=== PATIENT | female | born 1945 | race Caucasian/White ===

== ENCOUNTER 2016-06-29 09:15 | Outpatient (CLI) | payer MEDICARE, OTHER | END 2016-06-29 09:16 | disposition home or self-care (01) | DX: E88.81 Metabolic syndrome and other insulin resistance (principal) ==

== ENCOUNTER 2017-02-10 08:00 | Outpatient (CLI) | payer MEDICARE, OTHER ==
[2017-02-10 19:14] LABS: BASOPHILS # (AUTO) 0.1 10^3/uL (0.0-0.1); BASOPHILS % (AUTO) 0.6 %; EOSINOPHILS # (AUTO) 0.5 10^3/uL (0.0-0.7); EOSINOPHILS % (AUTO) 6.3 %; HGB - HEMOGLOBIN 13.4 g/dL (12.0-16.0); LYMPHOCYTES % (AUTO) 36.8 %; MEAN CORPUSCULAR HEMOGLOBIN 28.5 pg (27.0-31.0); MEAN CORPUSCULAR HGB CONC 31.9 g/dL (32.0-36.0); MEAN CORPUSCULAR VOLUME 89.2 fL (81.0-99.0); MEAN PLATELET VOLUME 8.1 fL (7.9-10.8); MONOCYTES # (AUTO) 0.6 10^3/uL (0.0-1.0); MONOCYTES % (AUTO) 7.7 %; NEUTROPHILS # (AUTO) 3.9 10^3/uL (1.5-6.6); NEUTROPHILS % (AUTO) 48.6 %; RED CELL DISTRIBUTION WIDTH 14.4 % (12.0-15.0); UNCORRECTED WHITE BLOOD COUNT 8.1 x10^3/uL; WHITE BLOOD COUNT 8.1 x10^3/uL (4.8-10.8)
[2017-02-10 19:19] LABS: HEMOGLOBIN A1C 0.64 g/dL
[2017-02-10 19:20] LABS: ALBUMIN/GLOBULIN RATIO 1.4 (1.0-2.2); BILIRUBIN,TOTAL 0.4 mg/dL (0.2-1.0); BUN - BLOOD UREA NITROGEN 18 mg/dL (6-20); CALCIUM 9.1 mg/dL (8.5-10.3); CARBON DIOXIDE - CO2 25 mmol/L (21-32); CHLORIDE 104 mmol/L (101-111); CHOL/HDL RATIO 2.8 (<4.4); CHOLESTEROL 224 mg/dL; CREATININE 0.7 mg/dL (0.4-1.0); GFR - MDRD 83 (>89); GLUCOSE 86 mg/dL (70-100); HDL CHOLESTEROL 81 mg/dL; LDL/HDL RATIO 1.5 (<4.4); POTASSIUM 3.9 mmol/L (3.5-5.0); SODIUM 138 mmol/L (135-145); TRIGLYCERIDES 119 mg/dL; VLDL CHOLESTEROL 24 mg/dL
[2017-02-10 19:49] LABS: THYROID STIMULATING HORMONE 0.73 uIU/mL (0.34-5.60)
== END 2017-02-10 08:01 ==
LOC: LAB.R 08:00
PROVIDERS: ATTEND Internal Medicine
DX: Z98.84 Bariatric surgery status (principal); R31.1 Benign essential microscopic hematuria; E03.9 Hypothyroidism, unspecified; E11.9 Type 2 diabetes mellitus without complications; I10 Essential (primary) hypertension; Z79.899 Other long term (current) drug therapy
CPT/HCPCS: 80053; 80061; 82306; 82607; 83036; 84443; 85025

== ENCOUNTER 2017-02-22 15:24 | Outpatient (CLI) | payer MEDICARE, OTHER ==
--- NOTE | 2017-02-23 14:11 | Mammography Report ---
DIGITAL BILATERAL SCREENING MAMMOGRAM: 02/22/2017 COMPARISON: 12/10/2015, 12/04/2014, 11/16/2014, 07/29/2011, 03/06/2010. TECHNIQUE: Bilateral digital CC and MLO projections with an additional exaggerated right CC projection. FINDINGS: There are scattered fibroglandular densities. There are no dominant masses, architectural distortion, skin thickening, or suspicious microcalcifications. Slight asymmetric increased density in the left subareolar region is stable. No significant new findings. IMPRESSION: NEGATIVE, BI-RADS 1. SUGGEST ROUTINE FOLLOWUP IN 12 MONTHS. STANDARD QUALIFYING STATEMENTS 1. This examination was reviewed with the aid of Computer-Aided Detection (CAD). 2. A negative or benign imaging report should not delay biopsy if clinically suspicious findings are present. Consider surgical consultation if warranted. More than 5% of cancers are not identified by imaging. 3. Dense breasts may obscure an underlying neoplasm. JOB #: [id number] EXT JOB #: [id number] [facility]ERS[facility]
== END 2017-02-22 15:25 | disposition home or self-care (01) ==
LOC: DI 15:24
PROVIDERS: ATTEND Internal Medicine
DX: Z12.31 Encounter for screening mammogram for malignant neoplasm of breast (principal)
CPT/HCPCS: 77067

== ENCOUNTER 2017-04-26 09:58 | Outpatient (CLI) | payer MEDICARE, OTHER | END 2017-04-26 09:59 | disposition home or self-care (01) | LOC: SC 09:58 | PROVIDERS: ATTEND Nurse Practitioner Family | DX: G47.33 Obstructive sleep apnea (adult) (pediatric) (principal) | CPT/HCPCS: 99214; G0463; 99212 ==

== ENCOUNTER 2017-05-25 12:04 | Outpatient (CLI) | payer MEDICARE, OTHER ==
--- NOTE | 2017-05-25 12:39 | XRAY Preliminary Report ---
Exam: XR CHEST 2 VIEW PA/LAT IMPRESSION: 1. Increased very mild left basilar atelectasis or infiltrate. No focal consolidation. 2. Probable ascending aortic ectasia, apparently increased compared with 2014. [facility] SITE ID: [id number]
--- NOTE | 2017-05-25 12:41 | XRAY Report ---
EXAM: CHEST RADIOGRAPHY EXAM DATE: 05/25/2017 12:28 PM. CLINICAL HISTORY: COUGH. COMPARISON: 02/20/2014. TECHNIQUE: 2 views. FINDINGS: Lungs/Pleura: Increased very mild left basilar opacity which could represent atelectasis or infiltrat e. No dense consolidation. No gross pleural effusion. No pneumothorax. Pattern suspicious for ascendi ng aortic ectasia, possibly increased. Mediastinum: Heart and mediastinal contours are unremarkable. Other: None. IMPRESSION: 1. Increased very mild left basilar atelectasis or infiltrate. No focal consolidation. 2. Probable ascending aortic ectasia, apparently increased compared with 2013. [facility] Referring Provider Line: [phone] SITE ID: [id number]
== END 2017-05-25 12:05 | disposition home or self-care (01) ==
LOC: DI 12:04
PROVIDERS: ATTEND Internal Medicine
DX: R05 Cough (principal)
CPT/HCPCS: 71020

== ENCOUNTER 2017-08-17 09:25 | Outpatient (CLI) | payer MEDICARE, OTHER ==
[2017-08-17 11:46] LABS: HB2 TOTAL 14.8 g/dL; HEMOGLOBIN A1C 0.73 g/dL; HEMOGLOBIN A1C % 6.7 % (4.6-6.2)
== END 2017-08-17 09:26 | disposition home or self-care (01) ==
LOC: LAB.R 09:25
PROVIDERS: ATTEND Internal Medicine
DX: E11.9 Type 2 diabetes mellitus without complications (principal)
CPT/HCPCS: 83036

== ENCOUNTER 2018-01-04 08:39 | Outpatient (CLI) | payer MEDICARE, OTHER ==
[2018-01-04 13:54] LABS: ALBUMIN 3.9 g/dL (3.2-5.5); ALBUMIN/GLOBULIN RATIO 1.2 (1.0-2.2); BILIRUBIN,TOTAL 0.9 mg/dL (0.2-1.0); CALCIUM 9.1 mg/dL (8.5-10.3); CREATININE 0.7 mg/dL (0.4-1.0); TOTAL PROTEIN 7.1 g/dL (6.7-8.2)
[2018-01-04 14:12] LABS: HB2 TOTAL 14.1 g/dL; HEMOGLOBIN A1C 0.65 g/dL; HEMOGLOBIN A1C % 6.4 % (4.6-6.2)
== END 2018-01-04 08:40 | disposition home or self-care (01) ==
LOC: LAB.R 08:39
PROVIDERS: ATTEND Internal Medicine
DX: E03.9 Hypothyroidism, unspecified (principal); E11.9 Type 2 diabetes mellitus without complications; I10 Essential (primary) hypertension
CPT/HCPCS: 80053; 83036; 84443

== ENCOUNTER 2018-02-03 15:07 | Outpatient (CLI) | payer MEDICARE, OTHER | END 2018-02-03 15:08 | disposition home or self-care (01) | LOC: LAB.R 15:07 | PROVIDERS: ATTEND Physician Assistant Medical | DX: N30.00 Acute cystitis without hematuria (principal) | CPT/HCPCS: 87086 ==

== ENCOUNTER 2018-05-09 14:54 | Outpatient (CLI) | payer MEDICARE, OTHER | END 2018-05-09 14:55 | disposition home or self-care (01) | LOC: SC 14:54 | PROVIDERS: ATTEND Nurse Practitioner Family | DX: G47.33 Obstructive sleep apnea (adult) (pediatric) (principal) | CPT/HCPCS: 99214; G0463; 99212 ==

== ENCOUNTER 2018-05-10 08:00 | Outpatient (CLI) | payer MEDICARE, OTHER ==
[2018-05-10 13:17] LABS: BASOPHILS # (AUTO) 0.1 10^3/uL (0.0-0.1); BASOPHILS % (AUTO) 0.8 %; EOSINOPHILS # (AUTO) 0.4 10^3/uL (0.0-0.7); HGB - HEMOGLOBIN 13.6 g/dL (12.0-16.0); LYMPHOCYTES # (AUTO) 2.8 10^3/uL (1.5-3.5); LYMPHOCYTES % (AUTO) 32.9 %; MEAN CORPUSCULAR HEMOGLOBIN 29.8 pg (27.0-31.0); MEAN CORPUSCULAR VOLUME 90.3 fL (81.0-99.0); MEAN PLATELET VOLUME 7.9 fL (7.9-10.8); MONOCYTES # (AUTO) 0.6 10^3/uL (0.0-1.0); MONOCYTES % (AUTO) 6.9 %; NEUTROPHILS # (AUTO) 4.7 10^3/uL (1.5-6.6); NEUTROPHILS % (AUTO) 54.4 %; PLT - PLATELET COUNT 204 10^3/uL (130-450); RED BLOOD COUNT 4.56 10^6/uL (4.20-5.40); RED CELL DISTRIBUTION WIDTH 13.8 % (12.0-15.0); WHITE BLOOD COUNT 8.6 x10^3/uL (4.8-10.8)
[2018-05-10 13:28] LABS: ALBUMIN 4.1 g/dL (3.2-5.5); ALBUMIN/GLOBULIN RATIO 1.3 (1.0-2.2); BILIRUBIN,TOTAL 0.6 mg/dL (0.2-1.0); CALCIUM 9.2 mg/dL (8.5-10.3); CREATININE 0.7 mg/dL (0.4-1.0); TOTAL PROTEIN 7.3 g/dL (6.7-8.2)
[2018-05-10 13:38] LABS: HB2 TOTAL 14.4 g/dL; HEMOGLOBIN A1C 0.65 g/dL; HEMOGLOBIN A1C % 6.3 % (4.6-6.2)
== END 2018-05-10 23:59 | disposition home or self-care (01) ==
LOC: LAB.R 08:00
PROVIDERS: ATTEND Internal Medicine
DX: Z98.84 Bariatric surgery status (principal); E03.9 Hypothyroidism, unspecified; E11.9 Type 2 diabetes mellitus without complications; I10 Essential (primary) hypertension; Z79.899 Other long term (current) drug therapy
CPT/HCPCS: 80053; 82306; 83036; 84443; 85025

== ENCOUNTER 2019-04-27 11:15 | Outpatient (CLI) | payer MEDICARE, OTHER ==
[2019-04-27 12:20] VITALS: BP 138/80
--- NOTE | 2019-04-27 12:20 | SLEEP CARE CONSULTATION ---
Information from patient questionnaire entered by Praveena Guerrero. I have reviewed and concur with the information entered by Praveena Guerrero. This document represents the service I personally performed and the decisions made by me, Andreina Bateman, RN, MSN, PLAYGROUND ATTENDANT. History of Present Illness Previous diagnosis: Moderate, Obstructive Sleep Apnea-Hypopnea Syndrome AHI: 20.9 Reason for follow up: annual (last seen 2018) Equipment type: CPAP Equipment obtained from: [employer] Mask style: Nasal (Dreamwear) Mask brand: Respironics Backup mask available: Yes Last cushion change: 2 weeks ago CPAP Compliance Data - Data Reviewed with Patient Average duration of nightly device use: 7.6 Compliance rate %: 98.9 (180 days) Current pressure setting (cmH2O): 8 Humidity settin Heated hose settin Average residual AHI: 2.1 Average large leak: 1 min 20 sec Subjective Missed days of use due to: reports: other (power outage) Patient concerns: reports: air blowing in eyes (rare), nasal congestion (seasonal - as currently ), dry mouth, nose, throat (rare [place] denies: aerophagia, mask discomfort, mask leak noise, condensation in mask/hose, epistaxis, other Observed to snore while using device: No Current pressure setting perceived as: comfortable On therapy, patient: reports: sleeping better, awakening more refreshed, being more awake and alert during the day, more rested overall. denies: drowsiness while driving Initial [place] Sleepiness Scale score: 1 Current [place] Sleepiness Scale score: 3 Allergies and Home Medications Known drug allergies: Yes (aspirin, NSAIDs., shrimp, guacolmole ) Drug allergies reviewed: Yes Home medication list reviewed: Yes Allergy and home medication list: Losartan Potassium 50mg tab one daily Ferrous Sulfate 325mg tab one weekly Levothyroxine Sodium 100mcg tab one daily Efudex 5% external cream Per derm as needed Zinc 50mg tab one daily Vitamin C 1000mg tab one daily Oyster Shell Calcium/D (citracal) Tab one daily Multi-Vitamin Tab one daily Magnesium 400mg tab one every other day Move Free Joint Health Advance Oral Tab two daily CoQ-10 300mg cap one every other day Timilol 5% Ophthalmic solution One drop each eye twice daily Latanoprost .005% Ophthalmic solution One drop each eye daily Vitamin D 400U cap one daily Review of Systems Review of systems same as previous: Yes (shrimp allergy noted on birthday) Physical Exam Blood Pressure: 138/80 Cuff size: long Heart Rate: 74 O2 Saturation: 97 Height: 5 ft 9.5 in Weight: 203 lb (with boots ) Weight change since last visit: lost 3.8 pounds Body Mass Index: 29.5 BMI Classification: Overweight Impression and Plan 1. Obstructive Sleep Apnea-Hypopnea Syndrome, moderate, with good treatment compliance and good apnea control. On CPAP therapy, the patient has better sleep quality and is more rested overall. 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 Evidently she was adjusting settings opposite of what she needed and [place]. We also discussed how to adjust the humidity to reduce nasal congestion. Printed Web instructions given with additional written explanations as instructed on sample device. For her filters not lasting when in miky environment, she is advised that if needs more than the insurance will cover, she can buy at local stores or online. There are times when no electricity is available in her job. When unable to use CPAP she is to avoid supine sleep with pillow positioning as her apnea is more severe supine. Patient's apnea severity and rationale for treatment to reduce apnea, improve sleep quality and reduce cardiovascular and cerebrovascular events was reviewed. I also reviewed the benefit of consistent device use of CPAP for hypertension, diabetes. * Continue CPAP pressure at 8 cmH2O * change humidity and heated hose as discussed. * Notify me if snoring with mask or feeling that the pressure is too much or too little * Attempt to lose weight * Return for follow up in 1 year, or sooner if concerns arise I spent 100% of this 30 minute visit face to face with the patient with greater than 50% of this was spent time counseling the patient and coordination of care. Extra time also taken due to patient forgetting her hearing aids and need to repeat conversation.
== END 2019-04-27 11:16 | disposition home or self-care (01) ==
LOC: SC 11:15
PROVIDERS: ATTEND Nurse Practitioner Family
DX: G47.33 Obstructive sleep apnea (adult) (pediatric) (principal)
CPT/HCPCS: 99214; G0463; 99212

== ENCOUNTER 2020-04-11 09:05 | Outpatient (CLI) | payer MEDICARE, OTHER ==
--- NOTE | 2020-04-11 09:00 | SLEEP CARE CONSULTATION ---
Information from patient questionnaire entered by Praveena Guerrero. I have reviewed and concur with the information entered by Praveena Guerrero. This document represents the service I personally performed and the decisions made by , Vivienne Oleary ARNP. History of Present Illness Service Date and Time: 04/11/2020 0840 Previous diagnosis: Moderate, Obstructive Sleep Apnea-Hypopnea Syndrome AHI: 20.9 (in 2016)(20.3 in 2014) Reason for follow up: annual (last seen 2018) Equipment type: CPAP Equipment obtained from: [employer] (getting supplies as needed) Mask style: Nasal Mask brand: Respironics (Dreamwear) Backup mask available: Yes (old mask) Last cushion change: 2 weeks Prior sleep studies: Yes Year and Where: 2013 and 2015 - [facility] Type of Sleep Study: Polysomnography HPI additional information: SOL OLMOS was diagnosed to have moderate, AHI 20.9, obstructive sleep apnea-hypopnea syndrome and returns via Telehealth video today for CPAP therapy annual follow-up. CPAP Compliance Data - Data Reviewed with Patient Average duration of nightly device use: 7.7 Compliance rate %: 98.9 (180 days) Current pressure setting (cmH2O): 8 Humidity settin Heated hose settin Average residual AHI: 2.8 Central apnea: 0.1 Obstructive apnea: 2.1 Average large leak: 3 min 31 sec Subjective Patient concerns: reports: dry mouth, nose, throat (dry nose when reservoir before end of night[place]), other (headgear catching hair and sliding on hair). denies: aerophagia, mask discomfort, air blowing in eyes, mask leak noise, condensation in mask/hose, nasal congestion, epistaxis Observed to snore while using device: No Current pressure setting perceived as: comfortable On therapy, patient: reports: sleeping better, awakening more refreshed, being more awake and alert during the day, more rested overall. denies: drowsiness while driving Initial [place] Sleepiness Scale score: 5 (in 2013) Current [place] Sleepiness Scale score: 6 Allergies and Home Medications Drug allergies reviewed: Yes (see list above) Home medication list reviewed: Yes (no changes) Review of Systems Review of systems same as previous: Yes (no changes) Physical Exam Vital signs obtained and entered by: Telehealth visit to reduce exposure during Covid pandemic Height: 5 ft 9.5 in Impression and Plan 1. Obstructive Sleep Apnea-Hypopnea Syndrome, moderate, with good treatment compliance and good apnea control. On CPAP therapy, the patient has better sleep quality and is more rested overall. She has had some nasal dryness[place]. Nasal dryness can be reduced with increasing the CPAP humidity and the heated hose can be increased if condensation. She was encouraged to try reducing the heated hose first and then increasing humidity as needed. She voiced understanding. Patient's apnea severity and rationale for treatment to reduce apnea, improve sleep quality and reduce cardiovascular and cerebrovascular events was reviewed. I also reviewed the benefit of consistent device use of CPAP for hypertension and diabetes. * Continue autoCPAP pressure at 8 cmH2O * Notify me if snoring with mask or feeling that the pressure is too much or too little * Attempt to lose weight * Call this office if any problems using CPAP * Return for follow up in 1 year, or sooner if concerns arise Counseling Topics: Spare mask Visit Type: Telehealth Video Video Type: [place] Patient Location: Car Location of Provider: Office Time Spent with Patient (minutes): 17 Provider Statement: I spent 100% of the Telehealth Video Call with the patient with greater than 50% spent counseling the patient and coordination of care.
== END 2020-04-11 09:06 | disposition home or self-care (01) ==
LOC: SC 09:05
PROVIDERS: ATTEND Nurse Practitioner Family
DX: G47.33 Obstructive sleep apnea (adult) (pediatric) (principal)

== ENCOUNTER 2020-04-30 08:00 | Outpatient (CLI) | payer MEDICARE, OTHER ==
[2020-04-30 11:50] LABS: BASOPHILS # (AUTO) 0.1 10^3/uL (0.0-0.1); BASOPHILS % (AUTO) 0.9 %; EOSINOPHILS # (AUTO) 0.4 10^3/uL (0.0-0.7); EOSINOPHILS % (AUTO) 5.2 %; LYMPHOCYTES # (AUTO) 2.4 10^3/uL (1.5-3.5); LYMPHOCYTES % (AUTO) 30.7 %; MEAN CORPUSCULAR HEMOGLOBIN 29.4 pg (27.0-31.0); MEAN PLATELET VOLUME 10.1 fL (7.9-10.8); MONOCYTES # (AUTO) 0.7 10^3/uL (0.0-1.0); MONOCYTES % (AUTO) 8.3 %; NEUTROPHILS # (AUTO) 4.3 10^3/uL (1.5-6.6); NEUTROPHILS % (AUTO) 54.6 %; PLT - PLATELET COUNT 166 10^3/uL (130-450); RED BLOOD COUNT 4.42 10^6/uL (4.20-5.40); RED CELL DISTRIBUTION WIDTH 13.3 % (12.0-15.0); WHITE BLOOD COUNT 7.9 x10^3/uL (4.8-10.8)
[2020-04-30 12:31] LABS: THYROID STIMULATING HORMONE 0.82 uIU/mL (0.34-5.60)
[2020-04-30 12:32] LABS: FREE T3 2.87 pg/mL (2.5-3.9); HEMOGLOBIN A1c% 6.4 % (4.27-6.07)
[2020-04-30 12:33] LABS: FREE T4 (FREE THYROXINE) 1.06 ng/dL (0.58-1.64)
[2020-04-30 12:36] LABS: ALBUMIN 3.7 g/dL (3.2-5.5); ALBUMIN/GLOBULIN RATIO 1.3 (1.0-2.2); ALKALINE PHOSPHATASE 80 IU/L (42-121); ALT ALANINE AMINOTRANSFERASE 24 IU/L (10-60); AST ASPARTATE AMINOTRANSFERASE 24 IU/L (10-42); BILIRUBIN,TOTAL 0.7 mg/dL (0.2-1.0); BUN - BLOOD UREA NITROGEN 20 mg/dL (6-20); CALCIUM 8.8 mg/dL (8.5-10.3); CARBON DIOXIDE - CO2 28 mmol/L (21-32); CHLORIDE 108 mmol/L (101-111); CHOL/HDL RATIO 2.6 (<4.4); CHOLESTEROL 183 mg/dL; CREATININE 0.8 mg/dL (0.4-1.0); GLUCOSE 109 mg/dL (70-100); HDL CHOLESTEROL 71 mg/dL; LDL CHOLESTEROL,CALCULATED 99 mg/dL; LDL/HDL RATIO 1.4 (<4.4); SODIUM 140 mmol/L (135-145); TOTAL PROTEIN 6.6 g/dL (6.7-8.2); VLDL CHOLESTEROL 13 mg/dL
== END 2020-04-30 23:59 | disposition home or self-care (01) ==
LOC: LAB.WCP 08:00
PROVIDERS: ATTEND Family Medicine
DX: E03.9 Hypothyroidism, unspecified (principal); E11.9 Type 2 diabetes mellitus without complications; I10 Essential (primary) hypertension; E66.9 Obesity, unspecified; M19.90 Unspecified osteoarthritis, unspecified site
CPT/HCPCS: 36415; 80053; 80061; 83036; 83721; 83735; 84439; 84443; 84481; 85025

== ENCOUNTER 2021-01-17 08:00 | Outpatient (CLI) | payer MEDICARE, OTHER ==
[2021-01-17 18:54] LABS: CALCIUM 8.8 mg/dL (8.5-10.3); CREATININE 0.8 mg/dL (0.4-1.0); POTASSIUM 4.4 mmol/L (3.5-5.0)
[2021-01-17 19:35] LABS: CREATININE,URINE 75.6 mg/dL; MICROALBUMIN,URINE < 0.2 mg/dL (0-300.0)
[2021-01-17 20:45] LABS: ESTIMATED AVERAGE GLUCOSE 143 mg/dL (70-100); HEMOGLOBIN A1c% 6.6 % (4.27-6.07)
== END 2021-01-17 23:59 | disposition home or self-care (01) ==
LOC: LAB.WCP 08:00
PROVIDERS: ATTEND Family Medicine
DX: E11.9 Type 2 diabetes mellitus without complications (principal); I10 Essential (primary) hypertension
CPT/HCPCS: 36415; 80048; 82043; 82570; 83036

== ENCOUNTER 2021-01-31 14:48 | Outpatient (CLI) | payer MEDICARE, OTHER ==
--- NOTE | 2021-01-31 15:22 | SLEEP CARE CONSULTATION ---
Information from patient questionnaire entered by Praveena Guerrero. I have reviewed and concur with the information entered by Praveena Guerrero. This document represents the service I personally performed and the decisions made by , Vivienne Oleary ARNP. History of Present Illness Service Date and Time: 01/31/2021 1448 Previous diagnosis: Moderate, Obstructive Sleep Apnea-Hypopnea Syndrome AHI: 20.9 (in 2015)(20.3 in 2013) Reason for follow up: other (9 month, CPAP recall) Equipment type: CPAP Equipment obtained from: [employer] (getting supplies as needed) Mask style: Nasal Backup mask available: Yes (old mask) Prior sleep studies: Yes Year and Where: 2015 and 2013 - [facility] Type of Sleep Study: Polysomnography HPI additional information: GRAZYNA OLMOS was diagnosed to have moderate, AHI 20.9, obstructive sleep a pnea-hypopnea syndrome and returned today for CPAP therapy 9 month follow-up on CPAP recall. CPAP Compliance Data - Data Reviewed with Patient Average duration of nightly device use: 7 hr 42 min Compliance rate %: 99.4 (180 days) Current pressure setting (cmH2O): 8 Humidity settin Heated hose settin Average residual AHI: 2.5 Average large leak: 17 min 57 sec Subjective Missed days of use due to: reports: other (no electricity) Patient concerns: reports: other (last 6 months having coughing fits when using the device at night). denies: aerophagia, mask discomfort, air blowing in eyes, mask leak noise, condensation in mask/hose, nasal congestion, dry mouth, nose, throat, epistaxis Observed to snore while using device: No Current pressure setting perceived as: comfortable On therapy, patient: reports: sleeping better, awakening more refreshed, being more awake and alert during the day, more rested overall. denies: drowsiness while driving Initial [place] Sleepiness Scale score: 5 (in 2013) Current [place] Sleepiness Scale score: 7 Allergies and Home Medications Home medication list reviewed: Yes (statin) Review of Systems Review of systems same as previous: Yes (no changes) Physical Exam Heart Rate: 77 O2 Saturation: 96 Height: 5 ft 9.5 in Weight: 213 lb Body Mass Index: 30.9 BMI Classification: Obese Impression and Plan 1. Obstructive Sleep Apnea-Hypopnea Syndrome, moderate, with excellent treatment compliance and good apnea control. On CPAP therapy, the patient has better sleep quality and is more rested overall. Patient has come in to discuss the [employer] recall on their device. Grazyna states that in the last 6 months she has been having difficulty with coughing fits when using her CPAP machine at night. When she found out about the recall she stopped using it 2 days ago and has not been having these nightly coughing fits that she was having with the CPAP. She has coughed so hard that she almost threw up a few times. I advised her not to continue using this device and that we should replace it with a new device that is not on the recall. Patient has already registered their device for the recall. Patient denies any black particles seen in machine or hoses, any unusual odors coming from device. Patient voiced understanding and agreement with plan. Patient's apnea severity and rationale for treatment to reduce apnea, improve sleep quality and reduce cardiovascular and cerebrovascular events was reviewed. I also reviewed the benefit of consistent device use of CPAP for hypertension and diabetes. Patient states she maintained her weight at a comfortable weight for herself because she is very active with her job. * Continue auto CPAP pressure at 8 cmH2O * Update machine * Notify me if snoring with mask or feeling that the pressure is too much or too little * Maintain a healthy weight * Call this office if any problems using CPAP * Return for follow up one month after obtaining new device, or sooner if concerns arise Counseling Topics: Spare mask, Weight loss health impact Visit Type: In Office Time Spent with Patient (minutes): 21 Provider Statement: I spent 100% of the Face to Face Visit with the patient with greater than 50% spent counseling the patient and coordination of care.
== END 2021-01-31 14:49 | disposition home or self-care (01) ==
LOC: SC 14:48
PROVIDERS: ATTEND Nurse Practitioner Family
DX: G47.33 Obstructive sleep apnea (adult) (pediatric) (principal); E66.9 Obesity, unspecified; Z68.30 Body mass index [BMI] 30.0-30.9, adult
CPT/HCPCS: 99213; G0463; 99212